=== PATIENT | male | born 1970 | race Caucasian/White ===

== ENCOUNTER 2018-03-20 07:56 | Inpatient (IN) | payer OTHER ==
[~2018-03-20] VITALS: Ht 190.5 cm; Wt 109.0 kg
[2018-03-20 09:12] LABS: HEMATOCRIT 38.3 % (38.0-50.0); HEMOGLOBIN 12.9 G/DL (12.5-16.6); MCH 30.9 PG (29.0-34.0); MCHC 33.7 G/DL (30.0-36.0); MCV 91.6 FL (86-99); PLATELET COUNT 111 K/uL (156-360); RBC DIS.WIDTH-CV 15.9 % (11.8-14.6); RBC DIS.WIDTH-SD 53.3 % (39-53); RED BLOOD COUNT 4.18 M/uL (4.00-5.50); WHITE BLOOD COUNT 3.7 K/uL (4.1-10.2)
[2018-03-20 09:17] LABS: AMPHETAMINE NEGATIVE (500 ng/mL); BARBITURATES NEGATIVE (200 ng/mL); BENZODIAZEPINES NEGATIVE (150 ng/mL); BUPRENORPHINE NEGATIVE (10 ng/mL); COCAINE NEGATIVE (150 ng/mL); METHADONE NEGATIVE (200 ng/mL); METHAMPHETAMINE NEGATIVE (500 ng/mL); OPIATES (MORPHINE) NEGATIVE (100 ng/mL); OXYCODONE NEGATIVE (100 ng/mL); PHENCYCLIDINE NEGATIVE (25 ng/mL); PROPOXYPHENE NEGATIVE (300 ng/mL); THC CANNABINOIDS NEGATIVE (50 ng/mL); TRICYCLIC ANTIDEPRESSANTS NEGATIVE (300 ng/mL)
[2018-03-20 09:20] LABS: CHLORIDE 103 mEq/L (99-109); POTASSIUM 4.6 mEq/L (3.7-5.4); SODIUM 141 mEq/L (136-147)
[2018-03-20 09:21] LABS: GLUCOSE 70 mg/dL (70-99)
[2018-03-20 09:24] LABS: SERUM ETHYL ALCOHOL 148 mg/dL
[2018-03-20 09:25] LABS: CREATININE 0.8 mg/dL (0.6-1.3)
[2018-03-20 09:26] LABS: GFR ESTIMATE (CALCULATED) > 59 mL/min/ (58.99-99999); UREA NITROGEN (BUN) 9 mg/dL (9-23)
[2018-03-20] MEDS ORDERED: NEURONTIN300 MG PO (13:20)
[2018-03-20] MEDS ORDERED: LITHIUM CARBON300 M2 PO (13:20)
[2018-03-20] MEDS ORDERED: PRILOSEC20 MG PO (13:21)
[2018-03-20 14:53] VITALS: BP 148/72
[2018-03-21 07:55] VITALS: BP 130/85
[2018-03-21 16:11] VITALS: BP 134/84
[2018-03-22 07:42] VITALS: BP 127/63
[2018-03-22] MEDS ORDERED: LITHIUM CARBON300 M2 PO (09:06)
[2018-03-22] MEDS ORDERED: NEURONTIN300 MG PO (09:06)
[2018-03-22] MEDS ORDERED: PRILOSEC20 MG PO (09:06)
== END 2018-03-22 10:58 | disposition home or self-care (01) | DRG 885 ==
LOC: EME 07:56 → EDOF 12:49 → ENRESERV 14:29 → 1WEST 14:30
DX: F31.32 Bipolar disorder, current episode depressed, moderate (principal); F10.239 Alcohol dependence with withdrawal, unspecified; Y90.6 Blood alcohol level of 120-199 mg/100 ml; R45.850 Homicidal ideations; R45.851 Suicidal ideations; B19.20 Unspecified viral hepatitis C without hepatic coma; F17.200 Nicotine dependence, unspecified, uncomplicated; Z59.0 Homelessness; Z85.01 Personal history of malignant neoplasm of esophagus; Z92.21 Personal history of antineoplastic chemotherapy
CPT/HCPCS: 71046; 80048; 85027; 90839; 97150 GO; 97166 GO; 99281; 99284; G0480; J3411; J7030